=== PATIENT | female | born 1960 ===

== ENCOUNTER 2024-01-11 13:04 | Emergency (ER) | payer OTHER, SELFPAY ==
[2024-01-11 13:10] VITALS: BP 164/91; PULSE 71; RESP 14; TEMP 36.5; O2SAT 98; BMI 28.3
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
[2024-01-11] MEDS: PROPARACAINE 0.5% OPHTH SOL 1 DROPS EYE-LEFT (13:22)
[2024-01-11] MEDS: FLUORESCEIN 1 MG STRIP EYE-BOTH (13:23)
[2024-01-11 13:51] VITALS: BP 158/89; PULSE 68; RESP 14; O2SAT 99
== END 2024-01-11 13:58 | disposition home or self-care (01) ==
PROVIDERS: Emergency Provider Physician Assistant Medical
DX: H10.9 Unspecified conjunctivitis (principal)
CPT/HCPCS: 99282